=== PATIENT | female | born 1970 | race Caucasian/White ===

== ENCOUNTER → 2018-12-18 18:53 | Outpatient (CLI) | payer OTHER, SELFPAY ==
--- NOTE | 2018-12-18 18:57 | DI.RAD.S_ITS ---
PROCEDURE: XR ANKLE LT MIN 3V INDICATIONS: PAIN TECHNIQUE: 3 views of the ankle were acquired. COMPARISON: [facility], CR, XR FOOT LT MIN 3V, 12/18/2018, 19:03. FINDINGS: Bones: No fractures or dislocations. There is a small plantar calcaneal enthesophyte as well as a minimal calcaneal enthesophyte at the Achilles insertion. Ankle mortise is normally aligned. No suspicious bony lesions. Soft tissues: There is a small tibiotalar joint effusion. Achilles tendon appears normal. IMPRESSION: 1. No fracture or subluxation. 2. Small calcaneal enthesophytes as described. Recommend correlation with clinical symptoms for possible associated bursitis or plantar fasciitis. 3. Small tibiotalar joint effusion. Dictated by: Vimal Knapp M.D. on 12/18/2018 at 19:18 Approved by: Vimal Knapp M.D. on 12/18/2018 at 19:22
--- NOTE | 2018-12-18 18:57 | DI.RAD.S_ITS ---
PROCEDURE: XR FOOT LT MIN 3V INDICATIONS: left foot pain TECHNIQUE: 3 views of the foot were acquired. COMPARISON: [facility], CR, XR ANKLE LT MIN 3V, 12/18/2018, 19:03. FINDINGS: Bones: No fractures or dislocations. There is mild degeneration of the 1st metatarsophalangeal joint with minimal osteophytosis and mild joint space narrowing. There is a small plantar calcaneal enthesophyte. No suspicious bony lesions. Soft tissues: There is a small tibiotalar joint effusion. Achilles tendon appears intact. IMPRESSION: 1. No fracture or subluxation. 2. Mild degeneration of the 1st metatarsophalangeal joint. Dictated by: Vimal Knapp M.D. on 12/18/2018 at 19:22 Approved by: Vimal Knapp M.D. on 12/18/2018 at 19:23
== END ==
PROVIDERS: Visit Provider Physician Assistant
DX: M79.672 Pain in left foot (principal); M77.32 Calcaneal spur, left foot; M25.472 Effusion, left ankle
CPT/HCPCS: 73610; 73630